=== PATIENT | female | born 1975 | race Caucasian/White ===

== ENCOUNTER 2016-05-06 09:18 | Emergency (ER) | payer OTHER ==
[2016-05-06 09:23] VITALS: RESP 18
[2016-05-06] MEDS ORDERED: NS 1,000 ML IV ONE ×3 (10:01→11:49)
[2016-05-06] MEDS ORDERED: ONDANSETRON 4 MG/2 ML VIAL IVP ONE (10:14)
[2016-05-06] MEDS ORDERED: HYDROmorphONE/DILAUDID 1 MG/ML SYR IVP ONE ×2 (10:15→11:42)
--- NOTE | 2016-05-06 10:22 | EDPHY ---
H & P Smoking Status: Never smoked Time Seen by Provider: 05/06/16 09:37 HPI/ROS: CHIEF COMPLAINT: Chest pain, shortness of breath, fever HISTORY OF PRESENT ILLNESS: 40-year-old female presents to the emergency department by private vehicle in complaining of cough, chest pain, feeling short of breath and having fever since Wednesday night, 3 days ago. The patient states I am pretty sure I have the flu. The patient however is not able to eat or drink anything. She has had low back discomfort. She has pleuritic pain in her chest. She did receive a flu shot. 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 Initially she was diagnosed with interstitial lung disease. She has been treated at [facility] for this. She finished treatment in February. She feels that her urine is hot. She denies dysuria, urgency or frequency with urination. She has had pyelonephritis numerous times in the past although she does not feel that this is related to kidney infection. REVIEW OF SYSTEMS: Constitutional: Subjective fevers, chills Eyes: No double or blurry vision. ENT: No sore throat. Respiratory: Cough. Shortness of breath Cardiac: Chest pain as above Gastrointestinal: No abdominal pain, vomiting or diarrhea. Genitourinary: No dysuria. Musculoskeletal: Low back pain. No neck pain Skin: No rashes. Neurological: No headache. (Annalise William) Past Medical/Surgical History: Interstitial lung disease diagnosis February 2016 (Annalise William) Social History: and lives in [place] (Annalise William) Physical Exam: General Appearance: Alert, appears ill. 162/94, 98% on room air, temperature 36.5 Eyes: Pupils equal and round. Extraocular motions are all intact. ENT: Mouth: Mucous membranes moist. Respiratory: No wheezing, rhonchi, or rales, lungs are clear to auscultation. Cardiovascular: Regular rate and rhythm. Gastrointestinal: Abdomen is soft and nontender, no masses, no rebound or guarding, bowel sounds normal. Neurological: Alert and oriented x 3, cranial nerves II through XII grossly intact Skin: Warm and dry, no rashes. Musculoskeletal: Nontender to palpate along the cervical, thoracic or lumbar spine. Neck is supple. Extremities: Full range of motion and no peripheral edema. Psychiatric: Patient is oriented X 3, there is no agitation. (Annalise William) Constitutional: Initial Vital Signs Temperature (C) 36.5 C 05/06/16 09:20 Heart Rate 100 05/06/16 09:20 Respiratory Rate 18 05/06/16 09:20 Blood Pressure 162/94 H 05/06/16 09:20 O2 Sat (%) 98 05/06/16 09:20 O2 Delivery Mode Room Air Allergies/Adverse Reactions: erythromycin base [Erythromycin Base] Allergy (Mild, Verified 01/05/16 15:26) Vomiting Home Medications: Medication Instructions Recorded Progestin (Mini Pill) 1 tab PO HS 11/20/13 Metoprolol Tartrate [Lopressor 25 12.5 mg PO BID #60 tab 11/23/13 mg (*)] Lisinopril 01/05/16 Oseltamivir Phosphate [Tamiflu] 75 mg PO BID #10 cap 05/06/16 Medical Decision Making - Diagnostics Imaging: Chest x-ray reveals stable granuloma compared with December 2014 study. This is reviewed by myself the PAC system as well as by the radiologist. (Annalise William) ED Course/Re-evaluation: 40-year-old female presents to the emergency department with diffuse myalgias cough and feeling short of breath. Laboratory studies reveal positive influenza swab. CBC and chemistries were within normal limits. Chest x-ray reveals no acute pulmonary disease. I discussed the pros and cons of using Tamiflu given her positive influenza swab. The patient elected to use Tamiflu. The patient also has a son at home who is 9 who has severe asthma. I recommended close follow-up with post anesthesia room nurse to start Tamiflu prophylactically. She verbalized understanding and agreed. (Annalise William) Differential Diagnosis: Including but not limited to influenza, bronchitis, pneumonia, viral upper respiratory infection, interstitial lung disease (Annalise William) - Data Points Laboratory Results: Laboratory Results 05/06/16 09:58 05/06/16 09:58 05/06/16 05/06/16 05/06/16 11:39 11:35 10:15 WBC RBC Hgb Hct MCV MCH MCHC RDW Plt Count MPV Neut % (Auto) Lymph % (Auto) Cloud % (Auto) Eos % (Auto) Baso % (Auto) Nucleat RBC Rel Count Absolute Neuts (auto) Absolute Lymphs (auto) Absolute Monos (auto) Absolute Eos (auto) Absolute Basos (auto) Absolute Nucleated RBC Immature Gran % Immature Gran # Sodium Potassium Chloride Carbon Dioxide Anion Gap BUN Creatinine Estimated GFR Glucose Calcium Beta HCG, Qual NEGATIVE Urine Color YELLOW Urine Appearance CLEAR Urine pH 6.0 (5.0-7.5) Ur Specific Meherrin 1.025 (1.002-1.030) Urine Protein NEGATIVE (NEGATIVE) Urine Ketones NEGATIVE (NEGATIVE) Urine Blood NEGATIVE (NEGATIVE) Urine Nitrate NEGATIVE (NEGATIVE) Urine Bilirubin NEGATIVE (NEGATIVE) Urine Urobilinogen 2.0 H EU (0.2-1.0) Ur Leukocyte Esterase NEGATIVE (NEGATIVE) Urine RBC 10-15 H /hpf (0-3) Urine WBC 1-3 /hpf (0-3) Ur Epithelial Cells TRACE /lpf (NONE-1+) Urine Bacteria NONE SEEN /hpf (NONE SEEN) Urine Mucus 1+ /lpf (NONE-1+) Urine Glucose NEGATIVE (NEGATIVE) Influenza Typ A,B (DFA) POSITIVE FOR FLU A H (NEGATIVE) 05/06/16 09:58 WBC 4.92 10^3/uL (3.80-9.50) RBC 4.78 10^6/uL (4.18-5.33) Hgb 15.2 g/dL (12.6-16.3) Hct 46.0 % (38.0-47.0) MCV 96.2 fL (81.5-99.8) MCH 31.8 pg (27.9-34.1) MCHC 33.0 g/dL (32.4-36.7) RDW 13.3 % (11.5-15.2) Plt Count 164 10^3/uL (150-400) MPV 10.7 fL (8.7-11.7) Neut % (Auto) 76.3 H % (39.3-74.2) Lymph % (Auto) 13.4 L % (15.0-45.0) Cloud % (Auto) 8.9 % (4.5-13.0) Eos % (Auto) 0.6 % (0.6-7.6) Baso % (Auto) 0.4 % (0.3-1.7) Nucleat RBC Rel Count 0.0 % (0.0-0.2) Absolute Neuts (auto) 3.75 10^3/uL (1.70-6.50) Absolute Lymphs (auto) 0.66 L 10^3/uL (1.00-3.00) Absolute Monos (auto) 0.44 10^3/uL (0.30-0.80) Absolute Eos (auto) 0.03 10^3/uL (0.03-0.40) Absolute Basos (auto) 0.02 10^3/uL (0.02-0.10) Absolute Nucleated RBC 0.00 10^3/uL (0-0.01) Immature Gran % 0.4 % (0.0-1.1) Immature Gran # 0.02 10^3/uL (0.00-0.10) Sodium 144 mEq/L (134-144) Potassium 3.9 mEq/L (3.5-5.2) Chloride 108 mEq/L (97-110) Carbon Dioxide 25 mEq/l (22-31) Anion Gap 11 mEq/L (8-16) BUN 11 mg/dL (7-23) Creatinine 0.8 mg/dL (0.6-1.0) Estimated GFR > 60 Glucose 95 mg/dL (70-100) Calcium 8.4 L mg/dL (8.5-10.4) Beta HCG, Qual Urine Color Urine Appearance Urine pH Ur Specific Meherrin Urine Protein Urine Ketones Urine Blood Urine Nitrate Urine Bilirubin Urine Urobilinogen Ur Leukocyte Esterase Urine RBC Urine WBC Ur Epithelial Cells Urine Bacteria Urine Mucus Urine Glucose Influenza Typ A,B (DFA) Medications Given: Discontinued Medications Hydromorphone HCl (Dilaudid) 0.5 mg IVP EDNOW ONE Stop: 05/06/16 10:16 Last Admin: 05/06/16 10:28 Dose: 0.5 mg Hydromorphone HCl (Dilaudid) 0.5 mg IVP EDNOW ONE Stop: 05/06/16 11:43 Last Admin: 05/06/16 11:48 Dose: 0.5 mg Sodium Chloride (Ns) 1,000 mls @ 0 mls/hr IV EDNOW ONE PRN Reason: As Directed Stop: 05/06/16 10:02 Last Admin: 05/06/16 10:12 Dose: 1,000 mls Sodium Chloride (Ns) 1,000 mls @ 0 mls/hr IV EDNOW ONE PRN Reason: As Directed Stop: 05/06/16 11:50 Last Admin: 05/06/16 11:49 Dose: Not Given Sodium Chloride (Ns) 1,000 mls @ 0 mls/hr IV EDNOW ONE PRN Reason: As Directed Stop: 05/06/16 11:50 Last Admin: 05/06/16 11:49 Dose: 1,000 mls Ketorolac Tromethamine (Toradol) 30 mg IVP EDNOW ONE Stop: 05/06/16 12:53 Last Admin: 05/06/16 13:02 Dose: 30 mg Ondansetron HCl (Zofran) 4 mg IVP EDNOW ONE Stop: 05/06/16 10:15 Last Admin: 05/06/16 10:28 Dose: 4 mg Departure - Departure Disposition: Home, Routine, Self-Care Clinical Impression: Influenza A Condition: Good Instructions: Influenza (ED) Additional Instructions: Tamiflu twice daily for 5 days. Talk with your primary care provider or post anesthesia room nurse regarding preventative Tamiflu for your child with asthma. Adult Pain & Fever Control: We recommend Acetaminophen (Tylenol) and Ibuprofen (Motrin,Advil) for pain and fever control. When fever is high or pain severe, both drugs can be used at the same time, but at different intervals. Please note the time differences. Your dose is: Acetaminophen 1000mg every 4 to 6 hours Ibuprofen 600mg every 8 hours with food Note: do not take Acetaminophen with Hydrocodone (Vicodin, Lortab) or Oycodone (Percocet). These medications also contain Acetaminophen. No more than 3000mg of Acetaminophen should be taken in 24 hours (for an adult). Referrals: Quinn Rodriguez MD [Medical Doctor] - 2-3 days, call for appt. (Primary care provider) Prescriptions: Oseltamivir Phosphate [Tamiflu] 75 mg PO BID #10 cap
[2016-05-06 10:27] LABS: % IMMATURE GRANULYOCYTES 0.4 % (0.0-1.1); ABSOLUTE IMMATURE GRANULOCYTES 0.02 10^3/uL (0.00-0.10); ADD DIFF? NO; ADD MORPH? NO; ADD SCAN? NO; ATYPICAL LYMPHOCYTE FLAG 0 (0-99); FRAGMENT RBC FLAG 10 (0-99); HEMOGLOBIN 15.2 g/dL (12.6-16.3); LEFT SHIFT FLG 0 (0-99); LIPEMIA HEMOLYSIS FLAG 80 (0-99); MEAN CELL HEMOGLOBIN 31.8 pg (27.9-34.1); MEAN CELL VOLUME 96.2 fL (81.5-99.8); MEAN PLATELET VOLUME 10.7 fL (8.7-11.7); PLATELET CLUMPS FLAG 40 (0-99); PLATELET COUNT 164 10^3/uL (150-400); RED BLOOD CELL COUNT 4.78 10^6/uL (4.18-5.33); RED CELL DISTRIBUTION WIDTH 13.3 % (11.5-15.2)
[2016-05-06 10:36] LABS: ANION GAP 11 mEq/L (8-16); CALCIUM 8.4 mg/dL (8.5-10.4); CARBON DIOXIDE 25 mEq/l (22-31); CHLORIDE 108 mEq/L (97-110); CREATININE 0.8 mg/dL (0.6-1.0); GLOMERULAR FILTRATION RATE > 60; GLUCOSE 95 mg/dL (70-100); POTASSIUM 3.9 mEq/L (3.5-5.2); SODIUM 144 mEq/L (134-144)
--- NOTE | 2016-05-06 11:42 | DX ---
Chest, PA and Lateral, 4 views History: Chest pain, flulike symptoms Comparison: January 09, 2016 Findings: A large calcified granuloma in the left lower lung and a low thoracic scoliosis related to a lumbar scoliosis are stable. Lungs are clear, without infiltrate or consolidation. Heart size is no rmal. There is no adenopathy or mass lesion. There is no pleural effusion or pneumothorax. Bones are unremarkable for age. Impression: Normal.
[2016-05-06 11:58] LABS: BACTERIA NONE SEEN /hpf (NONE SEEN); COLOR YELLOW; LEUKOCYTE ESTERASE,URINE NEGATIVE (NEGATIVE); MUCUS 1+ /lpf (NONE-1+); NITRITE,URINE NEGATIVE (NEGATIVE)
[2016-05-06] MEDS ORDERED: KETOROLAC 30 MG/1 ML SDV IVP ONE (12:52)
[2016-05-06 13:40] VITALS: BP 137/99; PULSE 86; TEMP 99.1; O2SAT 92
== END 2016-05-06 13:40 | disposition home or self-care (01) ==
DX: J10.1 Influenza due to other identified influenza virus with other respiratory manifestations (principal)
CPT/HCPCS: 96374; J1170; J1885; J2405